=== PATIENT | female | born 2005 ===

== ENCOUNTER 2024-12-30 10:57 | Emergency (ER) | payer MEDICAID ==
[~2024-12-30] VITALS: Ht 160 cm; Wt 111.0 kg
[2024-12-30 11:32] VITALS: BP 138/76; PULSE 93; RESP 16; TEMP 98.1; O2SAT 98
== END 2024-12-30 14:30 | disposition left against medical advice (07) ==
LOC: ER 10:58
DX: R51.9 Headache, unspecified (principal); Z53.21 Procedure and treatment not carried out due to patient leaving prior to being seen by health care provider